=== PATIENT | female | born 1975 | race African-American/Black ===

== ENCOUNTER 2019-05-01 15:24 | Emergency (ER) | payer MEDICAID, OTHER ==
[~2019-05-01] VITALS: Ht 167.6 cm; Wt 77.0 kg
[~2019-05-01 15:24] MED LIST: ASPI325T85 PO
[2019-05-01] MEDS ORDERED: KETOROLAC 60MG/2ML VIAL IM ONE (19:45)
[2019-05-01 20:40] VITALS: BP 173/94
== END 2019-05-01 21:18 | disposition home or self-care (01) ==
LOC: ER 15:24
DX: G89.29 Other chronic pain (principal); M54.6 Pain in thoracic spine; E05.90 Thyrotoxicosis, unspecified without thyrotoxic crisis or storm; D64.9 Anemia, unspecified; Z98.890 Other specified postprocedural states; Z79.82 Long term (current) use of aspirin
CPT/HCPCS: 81025; 96372; 99283; J1885

== ENCOUNTER 2019-08-23 13:08 | Emergency (ER) | payer MEDICAID ==
[~2019-08-23] VITALS: Ht 160 cm; Wt 76.0 kg
[2019-08-23] MEDS ORDERED: ACETAMINOPHEN 325MG TABLET PO ONE (14:15)
[2019-08-23 16:25] VITALS: BP 158/78
== END 2019-08-23 16:26 | disposition home or self-care (01) ==
LOC: ER 13:16
DX: N64.4 Mastodynia (principal); N63.0 Unspecified lump in unspecified breast; J45.909 Unspecified asthma, uncomplicated; Z98.890 Other specified postprocedural states
CPT/HCPCS: 71045; 81025; 93005; 99283

== ENCOUNTER 2019-10-21 08:22 | Emergency (ER) | payer MEDICAID ==
[~2019-10-21] VITALS: Ht 162.6 cm; Wt 60.0 kg
[2019-10-21 08:33] VITALS: BP 161/97
[2019-10-21 09:26] LABS: *AMPHETAMINES SCREEN URINE NEGATIVE (NEGATIVE); *BARBITURATES SCREEN URINE NEGATIVE (NEGATIVE); *BENZODIAZEPINES SCREEN URINE NEGATIVE (NEGATIVE); *COCAINE SCREEN URINE NEGATIVE (NEGATIVE)
[2019-10-21 09:27] LABS: CANNABINOID URINE SCREEN NEGATIVE (NEGATIVE); METHADONE URINE SCREEN NEGATIVE (NEGATIVE); OPIATES URINE SCREEN NEGATIVE (NEGATIVE); PHENCYCLIDINE URINE SCREEN NEGATIVE (NEGATIVE)
[2019-10-21] MEDS ORDERED: IBUPROFEN 800MG TABLET PO ONE (10:15)
== END 2019-10-21 10:37 | disposition home or self-care (01) ==
LOC: ER 08:22
DX: N64.4 Mastodynia (principal); N63.0 Unspecified lump in unspecified breast; J45.909 Unspecified asthma, uncomplicated; D64.9 Anemia, unspecified
CPT/HCPCS: 76642; 80305; 81025; 99284

== ENCOUNTER 2019-10-29 12:32 | Emergency (ER) | payer MEDICAID ==
[~2019-10-29] VITALS: Ht 157.5 cm; Wt 77.0 kg
[2019-10-29] MEDS ORDERED: KETOROLAC 60MG/2ML VIAL IM ONE (13:00)
[2019-10-29 13:08] VITALS: BP 153/96
== END 2019-10-29 13:31 | disposition home or self-care (01) ==
LOC: ER 12:32
DX: N64.4 Mastodynia (principal); G89.29 Other chronic pain; N60.09 Solitary cyst of unspecified breast; D64.9 Anemia, unspecified
CPT/HCPCS: 93005; 96372; 99283; J1885

== ENCOUNTER 2020-03-21 13:12 | Emergency (ER) | payer MEDICAID, OTHER ==
[~2020-03-21] VITALS: Ht 157.5 cm; Wt 80.0 kg
[2020-03-21] MEDS ORDERED: IBUPROFEN 600MG TABLET PO STA (15:13)
[2020-03-21 16:35] VITALS: BP 161/94
== END 2020-03-21 16:38 | disposition home or self-care (01) ==
LOC: ER 13:12
DX: N64.4 Mastodynia (principal); Z98.890 Other specified postprocedural states; Z79.82 Long term (current) use of aspirin
CPT/HCPCS: 71045; 81025; 99283

== ENCOUNTER 2020-04-28 11:02 | Emergency (ER) | payer OTHER ==
[~2020-04-28] VITALS: Ht 157.5 cm; Wt 78.0 kg
[~2020-04-28 11:02] MED LIST changes: +ASPI-867 PO; -ASPI325T85 PO
[2020-04-28] MEDS ORDERED: IBUPROFEN 400MG TABLET PO ONE (11:45)
[2020-04-28] MEDS ORDERED: IBUP-2028 MT (11:45)
[2020-04-28] MEDS ORDERED: LORA10CA PO (11:53)
[2020-04-28 13:00] VITALS: BP 150/78
== END 2020-04-28 13:00 | disposition home or self-care (01) ==
LOC: ER 11:02
DX: R05 Cough (principal); R09.89 Other specified symptoms and signs involving the circulatory and respiratory systems; R43.8 Other disturbances of smell and taste; Z20.822 Contact with and (suspected) exposure to COVID-19; N64.4 Mastodynia; J45.909 Unspecified asthma, uncomplicated; D64.9 Anemia, unspecified; Z79.82 Long term (current) use of aspirin; Z98.890 Other specified postprocedural states; Z79.899 Other long term (current) drug therapy
CPT/HCPCS: 99282